=== PATIENT | female | born 1940 | race Caucasian/White ===

== ENCOUNTER 2024-01-05 14:27 | Inpatient (IN) | payer MEDICARE ==
[~2024-01-05] VITALS: Ht 157.5 cm; Wt 57.5 kg
--- NOTE | 2024-01-05 14:45 | NUR ---
arrived per EMS stretcher, assisted over off stretcher and into bed, bedside shift report given to JESSICA Cerrato
[2024-01-05] MEDS ORDERED: ISTALOL 2.5 ML2.5 ML OU (14:51)
[2024-01-05] MEDS ORDERED: LIPITOR 40MG TA40 MG PO (15:00)
[2024-01-05] MEDS ORDERED: NORVASC 5MG5 MG/TAB PO (15:00)
[2024-01-05] MEDS ORDERED: LEVOXYL0.025 MG PO (15:01)
[2024-01-05] MEDS ORDERED: CENTRUM SILVER1 TAB PO (15:06)
[2024-01-05] MEDS ORDERED: EPA FISH OIL1 SGL PO (15:07)
[2024-01-05] MEDS ORDERED: THE MEDICINE S200 M2 PO (15:07)
[2024-01-05] MEDS ORDERED: VITAMIN D31000 I1 PO (15:08)
[2024-01-05] MEDS ORDERED: CALCIUM 600MG+D1 TAB PO (15:08)
[2024-01-05] MEDS ORDERED: MELATONIN5 M1 SL (15:09)
[2024-01-05] MEDS ORDERED: Naloxone 0.4 MG/ML VIAL IV PRN (15:15)
[2024-01-05] MEDS ORDERED: D5 1/2 NS 1,000 ML IV SCH (15:15)
[2024-01-05] MEDS ORDERED: oxyCODONE 5 MG TAB PO PRN ×2 (15:15)
[2024-01-05] MEDS ORDERED: Acetaminophen 500 MG TAB PO SCH (16:08)
[2024-01-05 16:17] LABS: BASO % 0.2 % (0.0-2.0); EOS % 0.1 % (0.0-4.0); GRAN # 7.7 K/mm3 (1.4-6.5); GRAN % 73.8 % (42.2-75.2); HEMATOCRIT 37.9 % (37.0-47.0); HEMOGLOBIN 12.7 g/dl (12.5-16.0); LYMPH # 1.7 K/mm3 (1.2-3.4); MEAN CELL VOLUME 88 fl (80.0-100.0); MEAN CORPUSCULAR HEMOGLOBIN 30 pg (27-31); MEAN CORPUSCULAR HGB CONC 34 g/dl (33.0-37.0); MEAN PLATELET VOLUME 10.6 fl (7.4-10.4); MONO % 9.6 % (1.7-9.3); PLATELET COUNT 256 K/mm3 (130-400); REDCELL DISTRIBUTION WIDTH-CV 13.2 % (11.5-14.5)
[2024-01-05 16:18] LABS: INR 1.1 (0.8-3.0)
[2024-01-05 16:27] LABS: ALBUMIN 3.6 g/dL (3.4-4.8); BILIRUBIN,TOTAL 0.9 mg/dL (0.2-1.2); CALCIUM 8.7 mg/dL (8.4-10.2); CREATININE, serum 0.6 mg/dL (0.57-1.11); POTASSIUM 3.9 mEq/L (3.5-4.5); TOTAL PROTEIN 6.6 g/dl (6.2-8.1)
[2024-01-05 16:41] VITALS: BP 116/74; PULSE 85; TEMP 98.9
[2024-01-05 20:00] VITALS: BP 112/68; PULSE 75; TEMP 98.2
[2024-01-05 21:00] VITALS: BP_SYST 110
--- NOTE | 2024-01-05 21:30 | NUR ---
Patient resting in bed. Rates her pain at 2/10 at rest. Denies any needs. Assessment complete. IV in left AC infusing with no complications. Right leg elevated on a pillow. Espinoza draining to dependent drainage. Call light and personal items in reach. Bed in low position and bed alarm on.
[2024-01-05 23:29] VITALS: BP 110/62; PULSE 75; TEMP 98
[2024-01-06] VITALS (17 sets, daily range): BP systolic 97–153; BP diastolic 53–76; PULSE 74–98; TEMP 97–98.4
[2024-01-06] MEDS ORDERED: LR 1,000 ML IV SCH (05:00)
--- NOTE | 2024-01-06 05:50 | NUR ---
Patient resting in bed with eyes closed. Respirations even and unlaborded. No signs of pain at this time. No changes over night. Patient NPO since 4 this morning. Call light and persoanal items in reach. Bed in low position and bed alarm on.
[2024-01-06] MEDS ORDERED: dexAMETHasone 10 MG/ML VIAL ONE (07:53)
[2024-01-06] MEDS ORDERED: Lidocaine PF 2% (20 MG/ML) 5 ML VIAL ONE (07:53)
[2024-01-06] MEDS ORDERED: Ondansetron 4 MG/2 ML VIAL ONE (07:53)
[2024-01-06] MEDS ORDERED: fentaNYL 50 MCG/ML 2 ML VIAL ONE ×4 (07:53→09:32)
[2024-01-06] MEDS ORDERED: NS 10 ML IV ONE ×2 (07:53→07:54)
--- NOTE | 2024-01-06 08:00 | NUR ---
PATIENT IS A&O. VSS. NPO FOR PENDING SURGERY THIS AM. CONSENT OBTAINED AND ON CHART. TICKET TO RIDE ON CHART. PRE-OP FLUIDS INFUSING VIA GRAVITY INTO LEFT AC IV. HEAD TO TOE ASSESSMENT COMPLETE. SURGERY PENDING.
[2024-01-06] MEDS ORDERED: hydrALAZINE 20 MG/ML 1 ML VIAL IV PRN (09:30)
[2024-01-06] MEDS ORDERED: fentaNYL 50 MCG/ML 1 ML SYRINGE/VIAL [PACU/SDC ONLY] IV PRN (09:30)
[2024-01-06] MEDS ORDERED: Morphine 2 MG/1 ML VIAL [PACU/SDC ONLY] IV PRN (09:30)
[2024-01-06] MEDS ORDERED: HYDROmorphone 1 MG/1 ML SYRINGE [PACU/SDC ONLY] IV PRN (09:30)
[2024-01-06] MEDS ORDERED: Ondansetron 4 MG/2 ML VIAL IV PRN ×2 (09:30→10:45)
--- NOTE | 2024-01-06 10:35 | NUR ---
PATIENT BACK IN ROOM POSTOP. DROSWY. RESTING WITHOUT COMPLAINTS. VSS. LIQUIDS AT BEDSIDE. CALL LIGHT IN REACH.
[2024-01-06] MEDS ORDERED: diphenhydrAMINE 25 MG CAP PO PRN (10:45)
[2024-01-06] MEDS ORDERED: HYDROcodone/Acetaminophen 7.5-325 MG TAB PO PRN (10:45)
[2024-01-06] MEDS ORDERED: Naloxone 0.4 MG/ML VIAL IV PRN (10:45)
[2024-01-06] MEDS ORDERED: Mag/Al Hydrox/Simeth Susp 30 ML CUP PO PRN (10:45)
[2024-01-06] MEDS ORDERED: D5 1/2 NS 1,000 ML IV SCH (10:45)
[2024-01-06] MEDS ORDERED: Magnes Hydrox (MOM) 80 MG/ML 30 ML CUP PO PRN (10:45)
[2024-01-06] MEDS ORDERED: Ketorolac 15 MG/ML VIAL IV SCH ×3 (10:45→17:00)
[2024-01-06] MEDS ORDERED: diphenhydrAMINE 50 MG/ML 1 ML VIAL IV PRN (10:45)
[2024-01-06] MEDS ORDERED: Docusate Sodium 100 MG CAP PO PRN (10:45)
[2024-01-06] MEDS ORDERED: Morphine 4 MG/ML VIAL IV PRN (10:45)
--- NOTE | 2024-01-06 11:48 | NUR ---
Initial visit; Patient just out of surgery, Marketing Forecaster left a card with her Nurse offering God's blessings and information regarding the availabiity of [facility] [facility].
--- NOTE | 2024-01-06 14:40 | NUR ---
PATIENT SEEMS TO BE A LITTLE CONFUSED POSTOP. PATIENT PULLED OUT IV BUT SEEMED UNSURE HOW THAT HAPPENED. RN RESTARTED 20 GAUGE IV INTO RIGHT AC. PATIENT ALSO SPILT WATER ALL OVER HE TABLE & FLOOR, CLEANED UP. PATIENT RESTING UP IN BED WITH CALL LIGHT IN REACH. BED ALARM ON. DOOR OPEN.
[2024-01-06] MEDS ORDERED: ceFAZolin 1 G in Water For Injection,Sterile 10 ML IV SCH ×2 (15:00→21:00)
--- NOTE | 2024-01-06 16:53 | NUR ---
PATIENT A LITTLE MORE AWAKE NOW. DINNER TRAY ORDERED. NO OTHER NEEDS.
[2024-01-06] MEDS ORDERED: Melatonin 3 MG TAB PO PRN (21:00)
--- NOTE | 2024-01-06 22:31 | NUR ---
Received report from LAURENT Rodriguez. Pt is resting in bed with call light within reach and bed alarms on. Pt has a cardoso in plce with no kinks in tubing. Will continue pt care.
[2024-01-07] VITALS (11 sets, daily range): BP systolic 98–116; BP diastolic 60–65; PULSE 60–100; TEMP 98–98.6
--- NOTE | 2024-01-07 06:08 | NUR ---
Pt had an uneventful night. Pt had no complaints of pain throughout the night. Pt is currently resting in bed with call light within reach and bed alarms on. Pt's right leg is wrapped in SEE wrap and it's clean, dry and intact. Pt has good cap refill in toes and popliteal pulses are felt. Pt can also move thier leg without much pain. Pt has a cardoso in place with no kinks in tubing and adequate urine output. Pt has D5 1/2 NS running at this time. Will give report to day shift nurse.
[2024-01-07 07:18] LABS: HEMATOCRIT 30.5 % (37.0-47.0); HEMOGLOBIN 10.3 g/dl (12.5-16.0)
--- NOTE | 2024-01-07 12:21 | NUR ---
[employer] met with patient's son outside room to complete intake. Raymond Weathers ([phone]) verified that patient lives in independent living at [facility] in [place]. Patient is independent and uses a cane or walker for support. She sees Lanny Mason APRN as her PCP and uses [facility] in [place]. Raymond provided copy of DPOA document for patient's chart. Due to fracture, patient will require rehab prior to returning to her apartment. SW met with patient in room to discuss discharge needs. Patient agreeable. Referral to be sent to [facility]. Discharge plan: SNF
--- NOTE | 2024-01-07 16:30 | NUR ---
PATIENT ASSISTED TO COMMODE AND WAS ABLE TO VOID POST QUICK REMOVAL.
--- NOTE | 2024-01-07 19:30 | NUR ---
Assessment complete. A&Ox3. Denies pain/nausea/shortness of breath. VS stable. Olga was DCd earlier this shift-voiding without difficulty. SCD/TEDs on. Refusing ICE. Splint/gauze/elder to right lower extremity-CDI. INT to right [id number] without difficulty-No s/s of infiltration noted. Plan of care discussed for this shift to include meds/pain control/calling for questions/concerns. Verbalizes understanding. Call light in reach. Will monitor.
[2024-01-08] VITALS (7 sets, daily range): BP systolic 96–115; BP diastolic 55–68; PULSE 78–103; TEMP 97.7–98
--- NOTE | 2024-01-08 01:28 | NUR ---
Resting in bed eyes closed. NO s/s of pain or discomfort noted. Will monitor.
--- NOTE | 2024-01-08 05:37 | NUR ---
Patient had an uneventful night. Voiding without difficulty. Tolerating PO. INT to right AC flushes without difficulty. VS stable. Denied pain/nausea/shortness of breath. Is dressed and ready to go to shelter. Denies current needs. Call light in reach. Will monitor.
--- NOTE | 2024-01-08 07:00 | NUR ---
Bedside report given to LAURENT Whitney
[2024-01-08] MEDS ORDERED: PREDFORTE5ML OS (10:25)
--- NOTE | 2024-01-08 10:56 | NUR ---
JESS attended clinical rounds with team. Patient referred to [facility]. JESS spoke with Shauna at [facility] who states they can accept patient today and can transport at 1300. Shauna to contact patient's son to inquire about private vs semiprivate room. JESS had called patient's son to notify of discharge today. Discharge orders and clinicals to be faxed as soon as completed by PA. Discharge plan: SNF Today at 1300
[2024-01-08] MEDS ORDERED: ASPI325T6 PO (10:58)
[2024-01-08] MEDS ORDERED: TYLENOL 500MG500 MG PO (10:59)
[2024-01-08] MEDS ORDERED: NORCO 325 MG-51 TAB PO (11:00)
[2024-01-08] MEDS ORDERED: MIRALAX PA17 GM/Dose PO (11:01)
[2024-01-08] MEDS ORDERED: COLACE 100100 MG/CAP PO (11:01)
--- NOTE | 2024-01-08 11:28 | NUR ---
SW met with patient to discuss Medicare IM form. Patient agreeable to discharge, signed form. Copy provided to patient and original on chart
--- NOTE | 2024-01-08 13:36 | NUR ---
PT DISCHARGED TO [facility], VIA W/C WITH STAFF. REPORT CALLED TO LAURENT TALAMANTES AT 13:30. PT'S POSSESSIONS WITH PATIENT. SENT INFO PACKET WITH [employer]PORATE CLAIMS EX[employer]INER.
== END 2024-01-08 13:10 | DRG 493 ==
LOC: SURG 14:27
PROVIDERS: Nurse Practitioner Family; Orthopaedic Surgery; ADMIT Internal Medicine
PROC: 0QSG36Z Reposition Right Tibia with Intramedullary Internal Fixation Device, Percutaneous Approach (ICD-10-PCS; principal; 2024-01-06 10:00)
DX: S82.201A Unspecified fracture of shaft of right tibia, initial encounter for closed fracture (principal); J90 Pleural effusion, not elsewhere classified; Z66 Do not resuscitate; H40.9 Unspecified glaucoma; H91.90 Unspecified hearing loss, unspecified ear; E03.9 Hypothyroidism, unspecified; M19.90 Unspecified osteoarthritis, unspecified site; M81.0 Age-related osteoporosis without current pathological fracture; S82.431A Displaced oblique fracture of shaft of right fibula, initial encounter for closed fracture; S82.891A Other fracture of right lower leg, initial encounter for closed fracture; K21.9 Gastro-esophageal reflux disease without esophagitis; D64.9 Anemia, unspecified; E78.5 Hyperlipidemia, unspecified; I10 Essential (primary) hypertension; W18.39XA Other fall on same level, initial encounter; Z90.710 Acquired absence of both cervix and uterus; I07.1 Rheumatic tricuspid insufficiency; Z90.49 Acquired absence of other specified parts of digestive tract; Y93.89 Activity, other specified; Y92.89 Other specified places as the place of occurrence of the external cause; Z88.2 Allergy status to sulfonamides; Z79.899 Other long term (current) drug therapy; Z79.890 Hormone replacement therapy; Z23 Encounter for immunization
CPT/HCPCS: A9284; C1713; C1769; J0690; J1100; J1885; J2405; J2704; J2795; J3010